=== PATIENT | female | born 1965 | race African-American/Black ===

== ENCOUNTER 2016-03-25 15:17 | Emergency (ER) | payer OTHER ==
[~2016-03-25] VITALS: Ht 157.5 cm; Wt 82.0 kg
[~2016-03-25 15:17] MED LIST: ACET325S8 PO; AMLO10TA2 PO; ATEN-102 PO; CETI10 OR; FLUT1SPR9; GABA800T PO; GEMF600T PO; GLIP5 PO; GLUCTES27 XX; HYDR-2768 PO; IBUP800 PO; IBUP800T23 PO; LEVO.125 PO; LISI40TA PO; METF1000 PO; MULT-65 PO; VENTAER INH
[2016-03-25 15:20] VITALS: BP 138/105; PULSE 114; RESP 15; TEMP 98.2; O2SAT 98
--- NOTE | 2016-03-25 18:07 | PD ---
HPI Chief Complaint: Abdominal Pain Time Seen by Provider: 17:51 Travel History International Travel<30 days: No Contact w/Intl Traveler<30days: No Traveled to known affect area: No History of Present Illness HPI The patient was seen and examined in the presence of the nurse. She complains of some epigastric pain as well as nausea vomiting and diarrhea. Duration 3 days. Severity is moderate. No alleviating factors. Denies fever. PFSH Past Medical History Diabetes: Yes Hypertension: Yes Respiratory: Yes (BRONCITIS) Thyroid Disease: Yes ?: Not LMP: 03/18/16 Tubal Ligation: Yes Social History Alcohol Use: Yes (on occasion) Tobacco Use: Yes Substance Use: No Allergies-Medications (Allergen,Severity, Reaction): Coded Allergies: Darvocet-N 100 (Verified Allergy, Mild, 11/21/15) Reported Meds & Prescriptions Reported Meds & Active Scripts Active Lisinopril 40 Mg Tab 40 Mg PO DAILY Gemfibrozil 600 Mg Tab 600 Mg PO BIDAC Take 30 minutes prior to breakfast and dinner. Synthroid (Levothyroxine Sodium) 125 Mcg Tab 125 Mcg PO DAILY Metformin (Metformin HCl) 1,000 Mg Tab 1,000 Mg PO BIDPC With meals Amlodipine (Amlodipine Besylate) 10 Mg Tab 10 Mg PO DAILY Ibuprofen 800 Mg Tab 800 Mg PO Q8H PRN Reported Flonase Allergy Relief Children Nasal [place] (Fluticasone Nasal [place]) 50 Mcg/ Act [place] 2 [place] EACH NARE DAILY 50 mcg/spray Multivitamin Women (Multiple Vitamins W/ Minerals) 1 Tab Tab 1 Tab PO DAILY Hydrochlorothiazide 25 Mg Tab 25 Mg PO DAILY Glipizide 5 Mg Tab 5 Mg PO BIDAC Take 30 minutes before a meal Atenolol 50 Mg Tab 50 Mg PO BID Gabapentin 800 Mg Tab 800 Mg PO TID Review of Systems General / Constitutional: No: Fever Eyes: No: Visual changes HENT: No: Headaches Cardiovascular: No: Chest Pain or Discomfort Respiratory: No: Shortness of Breath Gastrointestinal: Positive: Nausea, Vomiting, Diarrhea, Abdominal Pain Genitourinary: No: Dysuria Musculoskeletal: No: Pain Skin: No Rash Neurologic: No: Weakness Psychiatric: No: Depression Endocrine: No: Polydipsia Hematologic/Lymphatic: No: Easy Bruising Physical Exam Narrative GENERAL: Well-nourished, well-developed patient in no apparent distress. SKIN: Warm and dry. HEAD: Atraumatic. Normocephalic. EYES: Pupils equal and round. No scleral icterus. No injection or drainage. ENT: No nasal bleeding or discharge. Mucous membranes pink and moist. NECK: Trachea midline. No JVD. CARDIOVASCULAR: Regular rate and rhythm. No murmur appreciated. RESPIRATORY: No accessory muscle use. Clear to auscultation. Breath sounds equal bilaterally. GASTROINTESTINAL: Abdomen soft, mild epigastric tenderness without rebound or guarding , nondistended. Hepatic and splenic margins not palpable. MUSCULOSKELETAL: No obvious deformities. No clubbing. No cyanosis. No edema. NEUROLOGICAL: Awake and alert. No obvious cranial nerve deficits. Motor grossly within normal limits. Normal speech. PSYCHIATRIC: Appropriate mood and affect; insight and judgment normal. Data Data Last Documented VS Vital Signs Date Time Temp Pulse Resp B/P Pulse Ox O2 Delivery O2 Flow Rate FiO2 03/25/16 19:11 94 16 167/99 96 Room Air 03/25/16 18:18 98.4 Orders Complete Blood Count With Diff (03/25/16 18:01) Comprehensive Metabolic Panel (03/25/16 18:01) Lipase (03/25/16 18:01) Iv Access Insert/Monitor (03/25/16 18:01) Ondansetron Inj (Zofran Inj) (03/25/16 18:15) Sodium Chloride 0.9% Flush (Ns Flush) (03/25/16 18:15) Sodium Chlor 0.9% 1000 Ml Inj (Ns 1000 M (03/25/16 18:15) Labs Laboratory Tests Test 03/25/16 18:15 White Blood Count 5.1 TH/MM3 Red Blood Count 4.60 MIL/MM3 Hemoglobin 11.9 GM/DL Hematocrit 37.5 % Mean Corpuscular Volume 81.6 FL Mean Corpuscular Hemoglobin 25.8 PG Mean Corpuscular Hemoglobin 31.6 % Concent Red Cell Distribution Width 17.0 % Platelet Count 353 TH/MM3 Mean Platelet Volume 6.9 FL Neutrophils (%) (Auto) 60.2 % Lymphocytes (%) (Auto) 23.8 % Monocytes (%) (Auto) 14.9 % Eosinophils (%) (Auto) 0.7 % Basophils (%) (Auto) 0.4 % Neutrophils # (Auto) 3.0 TH/MM3 Lymphocytes # (Auto) 1.2 TH/MM3 Monocytes # (Auto) 0.8 TH/MM3 Eosinophils # (Auto) 0.0 TH/MM3 Basophils # (Auto) 0.0 TH/MM3 CBC Comment DIFF FINAL Differential Comment Sodium Level 136 MEQ/L Potassium Level 4.0 MEQ/L Chloride Level 100 MEQ/L Carbon Dioxide Level 31.3 MEQ/L Anion Gap 5 MEQ/L Blood Urea Nitrogen 14 MG/DL Creatinine 1.11 MG/DL Estimat Glomerular Filtration 63 ML/MIN Rate Random Glucose 112 MG/DL Calcium Level 9.3 MG/DL Total Bilirubin 0.3 MG/DL Aspartate Amino Transf 26 U/L (AST/SGOT) Alanine Aminotransferase 19 U/L (ALT/SGPT) Alkaline Phosphatase 62 U/L Total Protein 8.4 GM/DL Albumin 3.5 GM/DL Lipase 578 U/L [facility] Medical Decision Making Medical Screen Exam Complete: Yes Emergency Medical Condition: Yes Medical Record Reviewed: Yes Differential Diagnosis Differential diagnosis includes pancreatitis, biliary colic, hepatitis, GERD, peptic ulcer disease. Narrative Course I have reviewed the patient's electronic medical record. IV placed I gave her IV Zofran and 1 L normal saline IV bolus CBC is normal Metabolic profile is normal LFTs are normal Lipase is a slight bit elevated at 550 On recheck the patient is resting comfortably, basically asleep. She is pain- free. She does have history of heavy alcohol use although has cut back no family. No history of gallstone disease. This point she stable for outpatient follow-up. Does not have leukocytosis or LFT elevation I don't think emergent imaging is indicated Her presentation seems more consistent with an acute viral gastroenteritis and may be a touch of alcohol-induced pancreatitis. Prescribed her some Zofran and tramadol to use as needed Diagnosis Primary Impression: Gastroenteritis Additional Instructions: The patient was advised to follow up with their physician and return if they worsen. The patient was warned about potential sedation for the medications they will receive on prescription. Have no alcohol Med/Other Pt SpecificInfo: Prescription(s) given Scripts Tramadol 50 Mg Tab50 Mg PO Q6H PRN (PAIN) #15 TAB Ref 0 Prov:Ariel Martins MD 03/25/16 Ondansetron (Zofran)4 Mg Tab4 Mg PO Q6HR PRN (NAUSEA OR VOMITING) #12 TAB Ref 0 Prov:Ariel Martins MD 03/25/16 Disposition: 01 DISCHARGE HOME Condition: Stable Ariel Martins MD Mar 25, 2016 18:07
[2016-03-25] MEDS ORDERED: ONDANSETRON HCL 4 MG/2 ML VIAL IVP ONE (18:15)
[2016-03-25] MEDS ORDERED: SODIUM CHLOR 0.9% 1000 ML INJ 1,000 ML IV ONE (18:15)
[2016-03-25] MEDS ORDERED: SODIUM CHLORIDE 0.9% FLUSH 5 ML FLUSH IVF PRN (18:15)
[2016-03-25 18:18] VITALS: BP 178/100; PULSE 92; RESP 16; TEMP 98.4; O2SAT 97
[2016-03-25] MEDS ORDERED: GABA800T PO (18:25)
[2016-03-25] MEDS ORDERED: GLIP5TAB8 PO (18:26)
[2016-03-25] MEDS ORDERED: ATEN50TA PO (18:26)
[2016-03-25] MEDS ORDERED: HYDR25TA5 PO (18:26)
[2016-03-25] MEDS ORDERED: FLUT1SPR9 EACH NARE (18:26)
[2016-03-25] MEDS ORDERED: MULT-120 PO (18:26)
[2016-03-25 18:38] LABS: BASOPHIL % 0.4 % (0.0-2.0); EOSINOPHIL % 0.7 % (0.0-4.0); HEMATOCRIT 37.5 % (35.0-46.0); HEMO FLAGS DIFF FINAL; LYMPH % 23.8 % (9.0-44.0); LYMPHOCYTE # 1.2 TH/MM3 (1.0-4.8); MEAN CELL VOLUME 81.6 FL (80.0-100.0); MEAN CORPUSCULAR HEMOGLOBIN 25.8 PG (27.0-34.0); MEAN CORPUSCULAR HGB CONC 31.6 % (32.0-36.0); MONO % 14.9 % (0.0-8.0); NEUT % 60.2 % (16.0-70.0); PLATELET COUNT 353 TH/MM3 (150-450); WHITE BLOOD COUNT 5.1 TH/MM3 (4.0-11.0)
[2016-03-25 18:51] LABS: ALKALINE PHOSPHATASE 62 U/L (45-117); ALT (GPT) 19 U/L (10-53); ANION GAP 5 MEQ/L (5-15); AST (GOT) 26 U/L (15-37); BICARBONATE 31.3 MEQ/L (21.0-32.0); BLOOD UREA NITROGEN 14 MG/DL (7-18); CHLORIDE 100 MEQ/L (98-107); GLOMERULAR FILTRATION RATE 63 ML/MIN (>89); SODIUM (NA) 136 MEQ/L (136-145); TOTAL BILIRUBIN ADULT 0.3 MG/DL (0.2-1.0)
[2016-03-25 19:11] VITALS: BP 167/99; PULSE 94; RESP 16; O2SAT 96
[2016-03-25] MEDS ORDERED: TRAM50TA PO (20:26)
[2016-03-25] MEDS ORDERED: ZOFR4TAB PO (20:26)
[2016-04-05] MEDS ORDERED: MIRTA15 PO (09:11)
[2016-04-05] MEDS ORDERED: RANI150T PO (09:17)
[2016-04-05] MEDS ORDERED: GABA800T PO (09:47)
[2016-04-08] MEDS ORDERED: GABA800T PO (15:25)
[2016-05-20] MEDS ORDERED: HYDR25TA5 PO ×2 (10:35→10:36)
[2016-05-26] MEDS ORDERED: EXCETAB2 PO (09:36)
[2016-06-03] MEDS ORDERED: METF1000 PO (06:28)
[2016-06-03] MEDS ORDERED: AMLO10TA2 PO (06:30)
[2016-07-05] MEDS ORDERED: LISI40TA PO (10:48)
[2016-07-05] MEDS ORDERED: METF1000 PO (10:48)
[2016-07-15] MEDS ORDERED: ATEN50TA PO ×2 (10:39→10:42)
[2016-08-03] MEDS ORDERED: ESCI10TA PO (14:28)
[2016-08-03] MEDS ORDERED: ONETAB22 PO (14:28)
[2016-08-03] MEDS ORDERED: RISP1TAB54 SL (14:28)
[2016-08-03] MEDS ORDERED: [UNRECOGNIZED DRUG - CODE] PO (14:28)
[2016-08-03] MEDS ORDERED: GLIP5TAB8 PO (14:43)
[2016-08-03] MEDS ORDERED: DIFL150T PO (14:43)
[2016-08-31] MEDS ORDERED: METF1000 PO (14:25)
[2016-09-01] MEDS ORDERED: TRAZ50TA12 PO (09:12)
[2016-09-01] MEDS ORDERED: DIFL150T PO (09:28)
[2016-09-01] MEDS ORDERED: VENTAER INH (09:31)
== END 2016-03-25 21:28 | disposition home or self-care (01) ==
LOC: NEPA 15:17
DX: K52.9 Noninfective gastroenteritis and colitis, unspecified (principal); R10.13 Epigastric pain; E11.9 Type 2 diabetes mellitus without complications; I10 Essential (primary) hypertension; E07.9 Disorder of thyroid, unspecified; Z87.09 Personal history of other diseases of the respiratory system; Z72.0 Tobacco use; Z79.84 Long term (current) use of oral hypoglycemic drugs
CPT/HCPCS: 80053; 83690; 85025; 96374; 99284; J2405; J7030

== ENCOUNTER → 2016-04-21 | Outpatient (CLI) | payer OTHER ==
[~2016-04-21] MED LIST changes: -ACET325S8 PO; -ATEN-102 PO; +ATEN50TA PO; -CETI10 OR; +DIFL150T PO; +ESCI10TA PO; +EXCETAB2 PO; -FLUT1SPR9; +FLUT1SPR9 EACH NARE; -GLIP5 PO; +GLIP5TAB8 PO; -GLUCTES27 XX; -HYDR-2768 PO; +HYDR25TA5 PO; -IBUP800 PO; -IBUP800T23 PO; +MIRTA15 PO; +MULT-120 PO; -MULT-65 PO; +ONETAB22 PO; +RANI150T PO; +RISP1TAB54 SL; +TRAM50TA PO; +TRAZ50TA12 PO; +[UNRECOGNIZED DRUG - CODE] PO
== END ==
LOC: CLAB 15:24
PROVIDERS: ATTEND Nurse Practitioner Family
DX: E78.5 Hyperlipidemia, unspecified (principal); R73.9 Hyperglycemia, unspecified
CPT/HCPCS: 36415; 83690

== ENCOUNTER → 2016-07-02 | Outpatient (CLI) | payer OTHER ==
[~2016-07-02] MED LIST changes: -TRAM50TA PO
[2016-07-02 08:34] LABS: HDL CHOLESTEROL 38.7 MG/DL (40.0-60.0); LDL CHOLESTEROL 53 MG/DL (0-99)
[2016-07-02 14:53] LABS: HEMOGLOBIN A1a 1.2 %; HEMOGLOBIN A1b 0.7 %; HEMOGLOBIN Ao 84.8 %; HEMOGLOBIN F 1.7 %; HEMOGLOBIN LA1C 1.8 %; HEMOGLOBIN P3 3.5 %
== END ==
LOC: CLAB 07:34
PROVIDERS: ATTEND Family Medicine
DX: E78.5 Hyperlipidemia, unspecified (principal); E11.9 Type 2 diabetes mellitus without complications; E03.9 Hypothyroidism, unspecified
CPT/HCPCS: 36415; 80061; 83036; 84443

== ENCOUNTER 2017-05-28 18:13 | Emergency (ER) | payer SELFPAY ==
[~2017-05-28 18:13] MED LIST changes: -EXCETAB2 PO; -MIRTA15 PO; -MULT-120 PO
[2017-05-28 19:09] VITALS: BP 183/85; PULSE 72; RESP 16; TEMP 99; O2SAT 99
[2017-05-28 21:00] LABS: AMORPHOUS SEDIMENT, URINE FEW; BACTERIA, URINE OCC /hpf; BILIRUBIN, URINE NEG (NEG); BLOOD, URINE TRACE (NEG); GLUCOSE,URINE NEG (NEG); KETONE, URINE NEG (NEG); NITRITE,URINE NEG (NEG); PH, URINE 5.5 (5.0-8.5); SQUAMOUS EPITHELIAL CELL URINE 14 /hpf (0-5); URINE COLOR YELLOW (YELLW/STRAW); URINE LEUKOCYTE ESTERASE LARGE (NEG)
[2017-05-29] MEDS ORDERED: DIFL150T PO (00:10)
--- NOTE | 2017-05-29 00:43 | PD ---
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 The patient was seen and examined in the presence of the nurse. Patient complains of thick clumped discharge. He's had yeast infections before this feels the same. No abdominal pain or presyncopal symptoms. Duration 3 days PFSH Past Medical History Diabetes: Yes Patient Takes Glucophage: No (UNKNOWN) Hypertension: Yes Respiratory: Yes (BRONCHITIS) Thyroid Disease: Yes ?: Not : 4 Para: 4 Miscarriage: 0 : 0 Dilation and Curettage (D&C): Yes Tubal Ligation: Yes Past Surgical History Gynecologic Surgery: Yes (TUBAL) Social History Alcohol Use: Yes (on occasion) Tobacco Use: Yes (2 CIG PER DAY) Substance Use: No Allergies-Medications (Allergen,Severity, Reaction): Coded Allergies: acetaminophen (Unverified Allergy, Mild, 05/28/17) propoxyphene (Unverified Allergy, Mild, 05/28/17) Reported Meds & Prescriptions Reported Meds & Active Scripts Active Diflucan (Fluconazole) 150 Mg Tab 150 Mg PO ONCE Amlodipine (Amlodipine Besylate) 10 Mg Tab 10 Mg PO DAILY Synthroid (Levothyroxine Sodium) 125 Mcg Tab 125 Mcg PO DAILY Ventolin Hfa 18 GM Inh (Albuterol Sulfate) 90 Mcg/Act Aer 2 Puff INH Q4-6H PRN Metformin (Metformin HCl) 1,000 Mg Tab 1,000 Mg PO BIDPC With meals Glipizide 5 Mg Tab 5 Mg PO BIDAC Take 30 minutes before a meal Atenolol 50 Mg Tab 50 Mg PO BID Lisinopril 40 Mg Tab 40 Mg PO DAILY Hydrochlorothiazide 25 Mg Tab 25 Mg PO DAILY Gabapentin 800 Mg Tab 800 Mg PO TID Gemfibrozil 600 Mg Tab 600 Mg PO BIDAC Take 30 minutes prior to breakfast and dinner. Diflucan (Fluconazole) 150 Mg Tab 150 Mg PO ONCE Diflucan (Fluconazole) 150 Mg Tab 150 Mg PO ONCE Reported Trazodone (Trazodone HCl) 50 Mg Tab 50 Mg PO HS Lohpgmu-Psywktnloedbo-Pefolutt 250-250-65 mg Tab 2 Tab PO DIRECTED PRN Risperdal M-Tab (Risperidone) 1 Mg Tab 1 Mg SL HS Escitalopram (Escitalopram Oxalate) 10 Mg Tab 10 Mg PO DAILY One Daily-Minerals (Multiple Vitamins W/ Minerals) 1 Tab 1 Tab PO DAILY Ranitidine (Ranitidine HCl) 150 Mg Tab 150 Mg PO BID Flonase Allergy Relief Children Nasal [place] (Fluticasone Nasal [place]) 50 Mcg/ Act [place] 2 [place] EACH NARE DAILY 50 mcg/spray Review of Systems General / Constitutional: No: Fever HENT: No: Headaches Cardiovascular: No: Chest Pain or Discomfort Physical Exam Narrative GASTROINTESTINAL: Abdomen soft, non-tender, nondistended. Positive bowel sounds. No hepato-splenomegaly, or palpable masses. No guarding. Psych: Normal mood and affect. Normal insight and judgment. SKIN: Focused skin assessment reveals no rash or ulcers. Skin is warm and dry. Palpation shows no induration or nodules. Data Data Last Documented VS Vital Signs Date Time Temp Pulse Resp B/P (MAP) Pulse Ox O2 Delivery O2 Flow Rate FiO2 05/28/17 19:09 99.0 72 16 183/85 (117) 99 Room Air Orders Orders Urinalysis - C+S If Indicated (05/28/17 19:47) Ed Urine Pregnancytest Poc (05/28/17 19:48) Labs Laboratory Tests Test 05/28/17 16:07 Urine Color YELLOW Urine Turbidity HAZY Urine pH 5.5 Urine Specific [place] 1.022 Urine Protein NEG mg/dL Urine Glucose (UA) NEG mg/dL Urine Ketones NEG mg/dL Urine Occult Blood TRACE Urine Nitrite NEG Urine Bilirubin NEG Urine Urobilinogen LESS THAN 2.0 MG/DL Urine Leukocyte Esterase LARGE Urine RBC 5 /hpf Urine WBC 3 /hpf Urine Squamous Epithelial Cells 14 /hpf Urine Amorphous Sediment FEW Urine Bacteria OCC /hpf Microscopic Urinalysis Comment CULT NOT INDICATED MDM Medical Decision Making Medical Screen Exam Complete: Yes Emergency Medical Condition: Yes Medical Record Reviewed: Yes Differential Diagnosis Yeast infection, cervicitis, PID Narrative Course I have reviewed the patient's electronic medical record. Urine is negative Urinalysis is normal Patient is a Diflucan in the past and requests that by name I wrote her a prescription for that The patient was advised to follow up with their physician and return if they worsen. Diagnosis Primary Impression: Yeast vaginitis Additional Instructions: The patient was advised to follow up with their physician and return if they worsen. Med/Other Pt SpecificInfo: Prescription(s) given Scripts Fluconazole (Diflucan) 150 Mg Tab 150 MG PO ONCE for Infection, #1 TAB 1 Refill Prov: Ariel Martins MD 05/29/17 Disposition: 01 DISCHARGE HOME Condition: Stable Ariel Martins MD May 29, 2017 00:43
[2017-05-29 00:58] VITALS: PULSE 82; RESP 18; O2SAT 100
== END 2017-05-29 00:59 | disposition home or self-care (01) ==
LOC: NEPD 18:13
DX: B37.3 Candidiasis of vulva and vagina (principal); E11.9 Type 2 diabetes mellitus without complications; I10 Essential (primary) hypertension; Z72.0 Tobacco use
CPT/HCPCS: 81001; 84703; 99283

== ENCOUNTER 2017-08-22 09:41 | Emergency (ER) | payer SELFPAY ==
[~2017-08-22] VITALS: Ht 162.6 cm; Wt 80.0 kg
[2017-08-22 09:50] VITALS: BP 172/83; PULSE 86; RESP 16; TEMP 98.8; O2SAT 100
[2017-08-22] MEDS ORDERED: PENI500T PO (10:34)
--- NOTE | 2017-08-22 10:42 | PD ---
HPI Chief Complaint: Pain: Acute or Chronic Time Seen by Provider: 10:26 Travel History International Travel<30 days: No Contact w/Intl Traveler<30days: No Traveled to known affect area: No History of Present Illness HPI 51-year-old female presents to the emergency room for multiple complaints. First complaint is carpal tunnel syndrome in bilateral hands. Symptoms are chronic but have been worse over the past week. Right is worse than left. She has been taking her prescribed gabapentin and Excedrin without relief in symptoms. Reports occasional paresthesias in the right hand. She does not work and has no hobbies but does lift her grandchildren a lot. Second complaint is left foot pain and arthritis for the past week. She states pain was so severe at one point she cannot put any weight on her foot. It has improved. She denies any trauma or injury to the area. Denies paresthesias. Again, her prescribed gabapentin and evli-hqs-dnsygjo Excedrin have not been improving symptoms. Third complaint is left lower jaw pain for the past week. Pain is worsened with chewing or applying pressure to the area. Radiates into her lymph nodes which also feel swollen. Denies any drainage, nausea, vomiting , fever, or chills to the area. She has not taken anything or done anything for her symptoms. Patient reported allergy to Darvocet and ibuprofen. Did not report allergy to acetaminophen to me. [facility] Past Medical History Diabetes: Yes Hypertension: Yes Respiratory: Yes (BRONCHITIS) Thyroid Disease: Yes : 4 Para: 4 Miscarriage: 0 : 0 Dilation and Curettage (D&C): Yes Tubal Ligation: Yes Past Surgical History Gynecologic Surgery: Yes (TUBAL) Social History Alcohol Use: Yes (on occasion) Tobacco Use: Yes (2 CIG PER DAY) Substance Use: No Allergies-Medications (Allergen,Severity, Reaction): Coded Allergies: acetaminophen (Unverified Allergy, Mild, 05/28/17) propoxyphene (Unverified Allergy, Mild, 05/28/17) Reported Meds & Prescriptions Reported Meds & Active Scripts Active Diflucan (Fluconazole) 150 Mg Tab 150 Mg PO ONCE Amlodipine (Amlodipine Besylate) 10 Mg Tab 10 Mg PO DAILY Synthroid (Levothyroxine Sodium) 125 Mcg Tab 125 Mcg PO DAILY Ventolin Hfa 18 GM Inh (Albuterol Sulfate) 90 Mcg/Act Aer 2 Puff INH Q4-6H PRN Metformin (Metformin HCl) 1,000 Mg Tab 1,000 Mg PO BIDPC With meals Glipizide 5 Mg Tab 5 Mg PO BIDAC Take 30 minutes before a meal Atenolol 50 Mg Tab 50 Mg PO BID Lisinopril 40 Mg Tab 40 Mg PO DAILY Hydrochlorothiazide 25 Mg Tab 25 Mg PO DAILY Gabapentin 800 Mg Tab 800 Mg PO TID Gemfibrozil 600 Mg Tab 600 Mg PO BIDAC Take 30 minutes prior to breakfast and dinner. Diflucan (Fluconazole) 150 Mg Tab 150 Mg PO ONCE Diflucan (Fluconazole) 150 Mg Tab 150 Mg PO ONCE Reported Trazodone (Trazodone HCl) 50 Mg Tab 50 Mg PO HS Xavfkmv-Ubpcuoojebuex-Ppamsbmi 250-250-65 mg Tab 2 Tab PO DIRECTED PRN Risperdal M-Tab (Risperidone) 1 Mg Tab 1 Mg SL HS Escitalopram (Escitalopram Oxalate) 10 Mg Tab 10 Mg PO DAILY One Daily-Minerals (Multiple Vitamins W/ Minerals) 1 Tab 1 Tab PO DAILY Ranitidine (Ranitidine HCl) 150 Mg Tab 150 Mg PO BID Flonase Allergy Relief Children Nasal [place] (Fluticasone Nasal [place]) 50 Mcg/ Act [place] 2 [place] EACH NARE DAILY 50 mcg/spray Review of Systems Except as stated in HPI: all other systems reviewed are Neg Physical Exam Narrative GENERAL: Well-nourished, well-developed female in no acute distress. Afebrile. Ambulatory. SKIN: Focused skin assessment warm/dry. HEAD: Normocephalic. EYES: No scleral icterus. No injection or drainage. DENTAL: Several missing teeth. No malocclusion. There is mild erythema of the left lower gingiva without obvious abscess. Patient appears to have mild submandibular lymphadenopathy. No submental, submandibular, or buccal induration or edema. ENT: Mucosa pink and moist. No erythema or exudates. No uvular edema. No uvular , palatal, or tonsillar deviation. Airway patent. Nasal turbinates appear normal without nasal blood, purulent drainage or septal hematoma. NECK: Supple, trachea midline. No JVD or lymphadenopathy. CARDIOVASCULAR: Regular rate and rhythm without murmurs, gallops, or rubs. RESPIRATORY: Breath sounds equal bilaterally. No accessory muscle use. MSK: No obvious edema and full range of motion of bilateral upper and lower extremities. 2+ radial pulse on the right wrist, 2+ dorsalis pedis pulse in the left foot. No bony tenderness to palpation. Radial, ulnar, and median nerves intact. Data Data Last Documented VS Vital Signs Date Time Temp Pulse Resp B/P (MAP) Pulse Ox O2 Delivery O2 Flow Rate FiO2 08/22/17 09:50 98.8 86 16 172/83 (112) 100 MDM Medical Decision Making Medical Screen Exam Complete: Yes Emergency Medical Condition: Yes Medical Record Reviewed: Yes Differential Diagnosis Abscess, carpal tunnel syndrome, dentalgia, gingivitis, stress fracture, strain , sprain, arthritis Narrative Course 51-year-old female presents to the emergency room for 3 separate complaints. First 2 complaints are chronic bilateral carpal tunnel syndrome and chronic arthritis of the left foot with exacerbations over the past week. Upper and lower extremities are neurovascularly intact with 2+ pulses. Patient is ambulatory with full range of motion. No bony tenderness to palpation. No edema, erythema, ecchymosis. Third complaint is dentalgia for a week. Physical exam reveals mild erythema of the left lower gingiva area. Patient has no teeth in the area but does have moderate erythema of the gingiva without obvious abscess. Mild tenderness to palpation. No submental, submandibular, or buccal induration or edema. Given lymphadenopathy and redness, patient will be treated for possible infection with penicillin. Told to follow-up outpatient for chronic symptoms and carpal tunnel syndrome. Told to return for worsening symptoms. She understands and agrees to plan. Diagnosis Primary Impression: Dentalgia Additional Impressions: Carpal tunnel syndrome Qualified Codes: G56.03 - Carpal tunnel syndrome, bilateral upper limbs Arthritis of left foot Referrals: Dentist Primary Care Physician Additional Instructions: Rest and drink plenty of fluids. Penicillin as directed, until gone. Take Tylenol with food as directed, as needed for pain. Apply ice to the affected area for 20 minutes at a time, as needed for pain and swelling. Follow-up with a primary care physician and a dentist. Return to the emergency room for worsening symptoms. Scripts Penicillin V Potassium (Penicillin V Potassium) 500 Mg Tab 500 MG PO Q6H for Infection for 7 Days, #28 TAB 0 Refills Prov: Antonietta De La Rosa MD 08/22/17 Disposition: 01 DISCHARGE HOME Condition: Stable Tanya Grider Aug 22, 2017 10:42
== END 2017-08-22 11:06 | disposition home or self-care (01) ==
LOC: NEPK 09:41
DX: G56.03 Carpal tunnel syndrome, bilateral upper limbs (principal); M19.072 Primary osteoarthritis, left ankle and foot; R20.2 Paresthesia of skin; M79.672 Pain in left foot; R68.84 Jaw pain; E11.9 Type 2 diabetes mellitus without complications; I10 Essential (primary) hypertension; Z88.6 Allergy status to analgesic agent; Z72.0 Tobacco use; Z79.84 Long term (current) use of oral hypoglycemic drugs
CPT/HCPCS: 99283